=== PATIENT | male | born 1945 | race Caucasian/White ===

== ENCOUNTER 2018-08-23 13:33 | Outpatient (CLI) | payer OTHER, MEDICARE | END 2018-08-23 19:22 | disposition home or self-care (01) | LOC: SRD 13:33 | PROVIDERS: ATTEND Internal Medicine | DX: M16.12 Unilateral primary osteoarthritis, left hip (principal); I70.90 Unspecified atherosclerosis | CPT/HCPCS: 73502 ==

== ENCOUNTER 2018-10-07 22:56 | Inpatient (IN) | payer OTHER, MEDICARE ==
[~2018-10-07] VITALS: Ht 175.3 cm; Wt 111.6 kg
[2018-10-07 23:10] VITALS: BP_SYST 69
[2018-10-07] MEDS ORDERED: NACL 0.9% 1,000 ML IV ONE (23:30)
[2018-10-07] MEDS ORDERED: ONDANSETRON HCL 4 MG/2 ML VIAL IVP ONE (23:45)
[2018-10-07 23:56] LABS: BASOPHILS % (AUTO) 0.2 % (0.0-2.0); EOSINOPHILS % (AUTO) 0.2 % (0.0-4.0); HEMATOCRIT 43.8 % (36-54); HEMOGLOBIN 14.9 g/dL (14.0-18.0); LYMPHOCYTES # (AUTO) 0.4 K/uL (1.0-5.5); LYMPHOCYTES % (AUTO) 3.5 % (20.5-51.5); MEAN CORPUSCULAR HEMOGLOBIN 31 pg (27-31); MEAN CORPUSCULAR HGB CONC 34 % (32-36); MEAN CORPUSCULAR VOLUME 91 fL (79.0-98.0); MONOCYTES # (AUTO) 0.5 K/uL (0.0-1.0); MONOCYTES % (AUTO) 4.2 % (1.7-9.3); NEUTROPHILS # (AUTO) 10.6 K/uL (1.8-7.7); NEUTROPHILS % (AUTO) 91.9 % (40.0-70.0); PLATELET COUNT (AUTO) 248 K/uL (130-430); RED BLOOD CELL COUNT(AUTO) 4.82 MIL/uL (4.2-6.2); RED CELL DISTRIBUTION WIDTH 13.5 % (9.0-15.0); WHITE BLOOD COUNT (AUTO) 11.5 K/uL (4.8-10.8)
[2018-10-08 00:05] LABS: PROTHROMBIN TIME 9.8 SECS (9.5-12.5)
[2018-10-08 00:15] LABS: ANION GAP 14 (5-15); CALCIUM 8.3 mg/dL (8.4-11.0); CHLORIDE 98 mmol/L (98-107); CREATININE 2.55 mg/dL (0.55-1.30); GLUCOSE 247 mg/dL (70-99); POTASSIUM 5.3 mmol/L (3.5-5.1); SODIUM SERUM 133 mmol/L (136-145); UREA NITROGEN, BLOOD 48 mg/dL (8-21)
[2018-10-08] MEDS ORDERED: NACL 0.9% 2,000 ML IV ONE (00:15)
[2018-10-08] MEDS ORDERED: PIPERACILLIN/TAZO 3.375 GM in NS 50 ML IV ONE (00:15)
[2018-10-08 00:20] LABS: ALANINE AMINOTRANSFERASE 41 U/L (12-78); ALBUMIN 3.3 g/dL (3.4-4.8); ASPARTATE AMINOTRANSFERASE 27 U/L (10-37); TOTAL BILIRUBIN 1.5 mg/dL (0.0-1.0)
[2018-10-08] MEDS ORDERED: PIPERACILLIN/TAZOBACTAM 3.375 GM/VIAL (ZOSYN) IV ONE ×2 (00:22→04:32)
[2018-10-08] MEDS ORDERED: CALCIUM CHLORIDE 1 GM in NS 100 ML IV ONE (00:30)
[2018-10-08] MEDS ORDERED: NS 500 ML IV ONE (00:30)
[2018-10-08] MEDS ORDERED: INSULIN REGULAR, HUMAN 10 UNITS/0.1 ML INJ SUBCUT ONE (00:30)
[2018-10-08] MEDS ORDERED: DEXTROSE 50% JECT 50 ML DISP.SYRIN IVP ONE (00:30)
[2018-10-08 01:15] LABS: BILIRUBIN,URINE 1+ (NEGATIVE); BLOOD, URINE NEGATIVE (NEGATIVE); CLARITY/URINE CLEAR (CLEAR); COLOR,URINE YELLOW (YELLOW); GLUCOSE,URINE TRACE (NEGATIVE); KETONES,URINE TRACE (NEGATIVE); LEUKOCYTE ESTERASE ,URINE NEGATIVE (NEGATIVE); NITRITE, URINE NEGATIVE (NEGATIVE); PROTEIN URINE NEGATIVE (NEGATIVE); UROBILINOGEN,URINE 0.2 (0.2-1.0)
[2018-10-08] MEDS ORDERED: metroNIDAZOLE 500 mg/NS 100 ML IV ONE (02:15)
[2018-10-08] MEDS ORDERED: ACETAMINOPHEN 325 MG TABLET PO PRN ×2 (02:45→03:45)
[2018-10-08] MEDS ORDERED: NACL 0.9% 1,000 ML IV SCH (02:45)
[2018-10-08] MEDS ORDERED: INSULIN REGULAR, HUMAN 100 UNITS/ML, 10 ML VIAL (novoLIN R) SUBCUT PRN (02:45)
[2018-10-08] MEDS ORDERED: METF1000 PO (03:05)
[2018-10-08 03:26] VITALS: BP_SYST 113
[2018-10-08] MEDS: NACL 0.9% 1,000 ML IV SCH ×3 (03:58→14:31)
[2018-10-08] MEDS ORDERED: metroNIDAZOLE 500 mg/NS 100 ML IV SCH ×2 (04:00→10:00)
[2018-10-08] MEDS ORDERED: PIPERACILLIN/TAZOBACTAM 2.25 GM VIAL IV ONE (05:33)
[2018-10-08] MEDS: PIPERACILLIN/TAZO 2.25G/DEX-IS 50 ML IV SCH ×4 (05:59→23:06)
[2018-10-08] MEDS ORDERED: PIPERACILLIN/TAZO 3.375 GM in NS 50 ML IV SCH (06:00)
[2018-10-08 08:47] VITALS: BP_SYST 107
[2018-10-08] MEDS: metroNIDAZOLE 500 mg/NS 100 ML IV SCH ×2 (09:37→17:58)
[2018-10-08 11:23] VITALS: BP_SYST 113
[2018-10-08] MEDS: INSULIN REGULAR, HUMAN 100 UNITS/ML, 10 ML VIAL (novoLIN R) SUBCUT PRN ×3 (11:33→21:23)
[2018-10-08] MEDS ORDERED: LIP10 PO (14:53)
[2018-10-08] MEDS ORDERED: GLIP10TA11 PO (14:53)
[2018-10-08] MEDS ORDERED: LISI1TAB13 PO (14:55)
[2018-10-08] MEDS ORDERED: CETI1TAB2 PO (14:55)
[2018-10-08] MEDS ORDERED: IBUP-1619 PO (14:56)
[2018-10-08 15:11] VITALS: BP_SYST 117
[2018-10-08 15:33] LABS: HEMOGLOBIN 13.1 g/dL (14.0-18.0); RED BLOOD CELL COUNT(AUTO) 4.23 MIL/uL (4.2-6.2); WHITE BLOOD COUNT (AUTO) 8.8 K/uL (4.8-10.8)
[2018-10-08 15:34] LABS: ANION GAP 3 (5-15); CALCIUM 7.4 mg/dL (8.4-11.0); CHLORIDE 106 mmol/L (98-107); CREATININE 1.58 mg/dL (0.55-1.30); GLUCOSE 253 mg/dL (70-99); HEMATOCRIT 38.9 % (36-54); MEAN CORPUSCULAR HEMOGLOBIN 31 pg (27-31); MEAN CORPUSCULAR HGB CONC 34 % (32-36); MEAN CORPUSCULAR VOLUME 92 fL (79.0-98.0); POTASSIUM 4.9 mmol/L (3.5-5.1); SODIUM SERUM 132 mmol/L (136-145); UREA NITROGEN, BLOOD 39 mg/dL (8-21)
[2018-10-08 15:36] LABS: BASOPHILS % (AUTO) 0.6 % (0.0-2.0); LYMPHOCYTES # (AUTO) 1.1 K/uL (1.0-5.5); LYMPHOCYTES % (AUTO) 12.3 % (20.5-51.5); NEUTROPHILS # (AUTO) 6.9 K/uL (1.8-7.7); NEUTROPHILS % (AUTO) 78.1 % (40.0-70.0); PLATELET COUNT (AUTO) 241 K/uL (130-430); RED CELL DISTRIBUTION WIDTH 13.3 % (9.0-15.0)
[2018-10-08 15:37] LABS: BASOPHILS # (AUTO) 0.1 K/uL (0.0-0.2); EOSINOPHILS # (AUTO) 0.2 K/uL (0.0-0.4); MONOCYTES # (AUTO) 0.6 K/uL (0.0-1.0)
[2018-10-08 15:39] LABS: ALANINE AMINOTRANSFERASE 41 U/L (12-78); ALBUMIN 2.6 g/dL (3.4-4.8); ASPARTATE AMINOTRANSFERASE 68 U/L (10-37); TOTAL BILIRUBIN 1.3 mg/dL (0.0-1.0)
[2018-10-08] MEDS ORDERED: GABA-531 PO (16:37)
[2018-10-08] MEDS ORDERED: GABAPENTIN 300 MG CAPSULE PO ONE (17:15)
[2018-10-08] MEDS ORDERED: DEXTROSE 50%-WATER 50 ML DISP.SYRIN IVP PRN (17:15)
[2018-10-08] MEDS ORDERED: D5W 1,000 ML IV PRN (17:15)
[2018-10-08] MEDS ORDERED: GLUCOSE 15 GM GEL (in 37.5 GM TUBE) PO PRN (17:15)
[2018-10-08] MEDS ORDERED: ATORVASTATIN 10 MG TABLET PO SCH (21:00)
[2018-10-08 21:12] VITALS: BP_SYST 100; BP_SYST 83
[2018-10-08] MEDS: P-EPHED SUL/LORATADINE 1 TAB.SR TAB.SR.12H PO SCH (21:15)
[2018-10-08] MEDS: GABAPENTIN 300 MG CAPSULE PO SCH (21:16)
[2018-10-09] MEDS: metroNIDAZOLE 500 mg/NS 100 ML IV SCH ×2 (01:15→10:03)
[2018-10-09] MEDS: NACL 0.9% 1,000 ML IV SCH ×2 (01:16→12:11)
[2018-10-09 01:50] VITALS: BP_SYST 105
[2018-10-09] MEDS: PIPERACILLIN/TAZO 2.25G/DEX-IS 50 ML IV SCH (05:58)
[2018-10-09] MEDS: INSULIN REGULAR, HUMAN 100 UNITS/ML, 10 ML VIAL (novoLIN R) SUBCUT PRN ×2 (06:02→12:00)
[2018-10-09 06:59] LABS: ALANINE AMINOTRANSFERASE 43 U/L (12-78); ALBUMIN 2.5 g/dL (3.4-4.8); ANION GAP 3 (5-15); ASPARTATE AMINOTRANSFERASE 49 U/L (10-37); CALCIUM 7.5 mg/dL (8.4-11.0); CHLORIDE 106 mmol/L (98-107); CREATININE 1.24 mg/dL (0.55-1.30); GLUCOSE 197 mg/dL (70-99); SODIUM SERUM 134 mmol/L (136-145); UREA NITROGEN, BLOOD 30 mg/dL (8-21)
[2018-10-09 07:50] VITALS: BP_SYST 117
[2018-10-09 07:52] LABS: HEMATOCRIT 37.7 % (36-54); HEMOGLOBIN 15.2 g/dL (14.0-18.0); MEAN CORPUSCULAR HEMOGLOBIN 31 pg (27-31); MEAN CORPUSCULAR HGB CONC 33 % (32-36); MEAN CORPUSCULAR VOLUME 92 fL (79.0-98.0); PLATELET COUNT (AUTO) 202 K/uL (130-430); RED CELL DISTRIBUTION WIDTH 13.7 % (9.0-15.0); WHITE BLOOD COUNT (AUTO) 7.6 K/uL (4.8-10.8)
[2018-10-09 07:53] LABS: BASOPHILS % (AUTO) 0.2 % (0.0-2.0); EOSINOPHILS # (AUTO) 0.3 K/uL (0.0-0.4); EOSINOPHILS % (AUTO) 3.3 % (0.0-4.0); LYMPHOCYTES # (AUTO) 1.5 K/uL (1.0-5.5); LYMPHOCYTES % (AUTO) 19.7 % (20.5-51.5); MONOCYTES # (AUTO) 0.8 K/uL (0.0-1.0); MONOCYTES % (AUTO) 10.1 % (1.7-9.3); NEUTROPHILS # (AUTO) 5.1 K/uL (1.8-7.7); NEUTROPHILS % (AUTO) 66.7 % (40.0-70.0)
[2018-10-09] MEDS ORDERED: LISINOPRIL 20 MG TABLET PO SCH (09:00)
[2018-10-09] MEDS ORDERED: NON-FORMULARY MEDICATION (Cetirizine Hcl/Pseudoephedrine (Zyrtec-D Tablet) 1 TAB) PO SCH (09:00)
[2018-10-09] MEDS ORDERED: HYDROCHLOROTHIAZIDE 25 MG TABLET (HCTZ) PO SCH (09:00)
[2018-10-09] MEDS: GABAPENTIN 300 MG CAPSULE PO SCH (10:03)
[2018-10-09] MEDS: P-EPHED SUL/LORATADINE 1 TAB.SR TAB.SR.12H PO SCH (10:08)
[2018-10-09 11:29] VITALS: BP_SYST 148
[2018-10-09] MEDS ORDERED: PIPERACILLIN/TAZOBACTAM 3.375 GM/ D5W 50 ML IV SCH ×2 (12:00)
[2018-10-09 12:56] VITALS: BP_SYST 117
[2018-10-09] MEDS ORDERED: cefTRIAXone 1 GM in D5W 50 ML IV SCH (13:45)
== END 2018-10-09 14:40 | disposition home or self-care (01) | DRG 871 ==
LOC: SED 22:56 → STU 10-08 03:09
PROVIDERS: ADMIT Family Medicine; ATTEND Family Medicine
DX: A41.9 Sepsis, unspecified organism (principal); N17.0 Acute kidney failure with tubular necrosis; E87.1 Hypo-osmolality and hyponatremia; A09 Infectious gastroenteritis and colitis, unspecified; E78.5 Hyperlipidemia, unspecified; E86.0 Dehydration; E87.5 Hyperkalemia; I10 Essential (primary) hypertension; R74.0 Nonspecific elevation of levels of transaminase and lactic acid dehydrogenase [LDH]; E66.9 Obesity, unspecified; E11.43 Type 2 diabetes mellitus with diabetic autonomic (poly)neuropathy; Z68.36 Body mass index [BMI] 36.0-36.9, adult
CPT/HCPCS: 36415; 80053; 81003; 82962; 83605; 84484; 85025; 85610-TC; 85730-TC; 87040-TC; 87086; 87230-TC; 93005; G0378; J0696; J1815; J2405; J2543; J3490; J7030; J7060

== ENCOUNTER 2019-09-12 09:46 | Outpatient (CLI) | payer OTHER, MEDICARE ==
[~2019-09-12 09:46] MED LIST: CETI1TAB2 PO; GABA-531 PO; GLIP10TA11 PO; IBUP-1619 PO; LIP10 PO; LISI1TAB29 PO
== END 2019-09-12 21:12 | disposition home or self-care (01) ==
LOC: SRD 09:46
PROVIDERS: ATTEND Internal Medicine
DX: M47.816 Spondylosis without myelopathy or radiculopathy, lumbar region (principal)
CPT/HCPCS: 72110

== ENCOUNTER 2019-10-19 23:47 | Emergency (ER) | payer OTHER, MEDICARE ==
[~2019-10-19] VITALS: Ht 175.3 cm; Wt 108.9 kg
[2019-10-20] VITALS: BP_SYST 159
--- NOTE | 2019-10-20 | NUR ---
Patient to ER bed 06 to gown for evaluation. Side rails up. Report given to JESSICA Tejada.
--- NOTE | 2019-10-20 00:10 | NUR ---
Pt brought in by self. Pt is awake, alert, oriented x4. Pt ambulates with limp to L foot. Pt states chief complaint of L foot pain and blisters secondary to boiling water. Pt states that he was making tea in his home, was carrying a kettle of boiling water when the handle broke, spilling boiling water on the floor and his foot. Pt describes lifting his Right foor out of the puddle of boiling water, while the left foot remained in the puddle. pt states it was approx 15 seconds before he was able to remove sock that was saturated with boiling water. Pt denies KO, mechanical fall. Pt denies chest pain, nausea, vomiting, diarrhea, shortness of breath, syncope. Pt denies any other medical complaint of any kind at this time. Pt states he is a diabetic and is worried about injuries to his feet Pt resting in ED bed comfortably. No acute distress. VSS
--- NOTE | 2019-10-20 01:10 | NUR ---
ER at bedside examining patient.
[2019-10-20] MEDS ORDERED: SILVER SULFADIAZINE 1%, 25 GM TOPICAL CREAM (SSD) TP ONE (01:15)
[2019-10-20] MEDS ORDERED: MORPHINE 4 MG/ML INJ. SYRINGE IM ONE (01:15)
[2019-10-20] MEDS ORDERED: DIPH-TET-PERTUS Vaccine 0.5 ML VIAL (ADACEL) I.M. ONE (01:15)
[2019-10-20] MEDS ORDERED: TRIAMCINOLONE ACETONIDE 40 MG/ML IM ONE (02:00)
--- NOTE | 2019-10-20 02:26 | NUR ---
Pt resting in ED bed comfortably. No distress at this time. Pt states relief from pain.
--- NOTE | 2019-10-20 03:00 | NUR ---
Pt foot dressed/wrapped, pt instructed on method
[2019-10-20 03:25] VITALS: BP_SYST 144
--- NOTE | 2019-10-20 03:25 | NUR ---
Patient given written and verbal discharge instructions and verbalizes understanding. ER MD discussed with patient the results and treatment provided. Patient in stable condition. ID arm band removed. No IV Rx of norco, keflex, silvadene, given. Patient educated on pain management and to follow up with PMD. Pain Scale 0/10. Opportunity for questions provided and answered. Medication side effect fact sheet provided.
== END 2019-10-20 03:25 | disposition home or self-care (01) ==
LOC: SED 23:47
DX: T25.122A Burn of first degree of left foot, initial encounter (principal); T31.0 Burns involving less than 10% of body surface; E11.9 Type 2 diabetes mellitus without complications; I10 Essential (primary) hypertension; Z79.899 Other long term (current) drug therapy; W35.XXXA Explosion and rupture of boiler, initial encounter; Y93.89 Activity, other specified; Y92.89 Other specified places as the place of occurrence of the external cause; Y99.8 Other external cause status
CPT/HCPCS: 16000; 82962; 90471; 90715; 96372; 99284; J2270

== ENCOUNTER 2020-05-07 09:05 | Outpatient (CLI) | payer OTHER, MEDICARE ==
[~2020-05-07 09:05] MED LIST changes: -CETI1TAB2 PO; -GABA-531 PO; -IBUP-1619 PO; -LIP10 PO; -LISI1TAB29 PO
== END 2020-05-07 21:09 | disposition home or self-care (01) ==
LOC: SCT 09:05
PROVIDERS: ATTEND Internal Medicine
DX: M47.817 Spondylosis without myelopathy or radiculopathy, lumbosacral region (principal); M47.814 Spondylosis without myelopathy or radiculopathy, thoracic region; M25.78 Osteophyte, vertebrae; M48.04 Spinal stenosis, thoracic region
CPT/HCPCS: 72128; 72131

== ENCOUNTER 2020-07-19 15:15 | Outpatient (CLI) | payer MEDICARE | END 2020-07-19 20:00 | disposition home or self-care (01) | LOC: SRD 15:15 | PROVIDERS: ATTEND Internal Medicine | DX: R07.89 Other chest pain (principal); M47.814 Spondylosis without myelopathy or radiculopathy, thoracic region | CPT/HCPCS: 71046-TC ==

== ENCOUNTER 2020-11-05 14:51 | Emergency (ER) | payer OTHER, MEDICARE ==
[~2020-11-05] VITALS: Ht 172.7 cm; Wt 111.1 kg
[2020-11-05 15:17] VITALS: BP_SYST 161
[2020-11-05] MEDS ORDERED: AMOX-423 PO ×2 (16:08→16:20)
[2020-11-05 16:30] VITALS: BP_SYST 161
== END 2020-11-05 16:30 | disposition home or self-care (01) ==
LOC: SED 14:51
DX: K04.7 Periapical abscess without sinus (principal); I10 Essential (primary) hypertension; E11.9 Type 2 diabetes mellitus without complications; I51.9 Heart disease, unspecified; Z79.899 Other long term (current) drug therapy
CPT/HCPCS: 99283

== ENCOUNTER 2021-03-02 22:04 | Emergency (ER) | payer OTHER, MEDICARE ==
[~2021-03-02] VITALS: Ht 172.7 cm; Wt 108.0 kg
[~2021-03-02 22:04] MED LIST changes: +AMOX-423 PO
[2021-03-02 22:10] VITALS: BP_SYST 139
[2021-03-03] MEDS ORDERED: DIPH-TET-PERTUS Vaccine 0.5 ML VIAL (ADACEL) I.M. ONE (00:15)
[2021-03-03] MEDS ORDERED: BACTROBAN TP (00:22)
[2021-03-03 00:26] VITALS: BP_SYST 145
== END 2021-03-03 00:26 | disposition home or self-care (01) ==
LOC: SED 22:04
DX: S51.812A Laceration without foreign body of left forearm, initial encounter (principal); W45.8XXA Other foreign body or object entering through skin, initial encounter; Y93.89 Activity, other specified; Y92.89 Other specified places as the place of occurrence of the external cause; Y99.8 Other external cause status
CPT/HCPCS: 90715; 99283

== ENCOUNTER 2021-08-16 14:19 | Emergency (ER) | payer OTHER, MEDICARE, SELFPAY ==
[~2021-08-16] VITALS: Ht 172.7 cm; Wt 90.3 kg
[~2021-08-16 14:19] MED LIST changes: +BACTROBAN TP
[2021-08-16 14:30] VITALS: BP_SYST 124
[2021-08-16 15:09] VITALS: BP_SYST 124
== END 2021-08-16 15:09 | disposition home or self-care (01) ==
LOC: SED 14:19
DX: E11.649 Type 2 diabetes mellitus with hypoglycemia without coma (principal); F41.9 Anxiety disorder, unspecified; I10 Essential (primary) hypertension; Z79.899 Other long term (current) drug therapy
CPT/HCPCS: 82962; 93005; 99283

== ENCOUNTER 2022-11-13 13:54 | Emergency (ER) | payer OTHER, MEDICARE ==
[~2022-11-13] VITALS: Ht 172.7 cm; Wt 108.9 kg
[2022-11-13 13:55] VITALS: BP_SYST 174
--- NOTE | 2022-11-13 13:55 | NUR ---
BROUGHT IN BY [facility] AND TRIAGED. AWAITING ER BED AVAILABILITY
--- NOTE | 2022-11-13 16:00 | NUR ---
ER at bedside examining patient.
--- NOTE | 2022-11-13 16:20 | NUR ---
PT NEIGHBOR OMERO CALLED FOR UPDATE ON PT CONDITION. CONFIRMED WITH PT VERBALLY THAT IT WAS OK TO GIVE INFORMATION TO CALLER. UPDATED OMERO ON STATUS OF TESTING. OMERO STATED HE WILL CALL BACK FOR UPDATE AND TO TELL PT THAT HE CALLED.
[2022-11-13 16:35] LABS: BASOPHILS % (AUTO) 0.3 % (0.0-2.0); EOSINOPHILS # (AUTO) 0.2 K/uL (0.0-0.4); EOSINOPHILS % (AUTO) 1.1 % (0.0-4.0); HEMATOCRIT 35.1 % (36-54); HEMOGLOBIN 11.5 g/dL (14.0-18.0); LYMPHOCYTES # (AUTO) 1.3 K/uL (1.0-5.5); MEAN CORPUSCULAR HEMOGLOBIN 30 pg (27-31); MEAN CORPUSCULAR HGB CONC 33 % (32-36); MEAN CORPUSCULAR VOLUME 91 fL (79.0-98.0); MONOCYTES # (AUTO) 0.8 K/uL (0.0-1.0); MONOCYTES % (AUTO) 5.4 % (1.7-9.3); NEUTROPHILS # (AUTO) 12.1 K/uL (1.8-7.7); NEUTROPHILS % (AUTO) 84.2 % (40.0-70.0); PLATELET COUNT (AUTO) 277 K/uL (130-430); RED BLOOD CELL COUNT(AUTO) 3.86 MIL/uL (4.2-6.2); RED CELL DISTRIBUTION WIDTH 13.1 % (9.0-15.0); WHITE BLOOD COUNT (AUTO) 14.4 K/uL (4.8-10.8)
[2022-11-13 16:39] LABS: ANION GAP 4 (5-15); CALCIUM 8.8 mg/dL (8.4-11.0); CHLORIDE 106 mmol/L (98-107); CREATININE 1.85 mg/dL (0.55-1.30); GLUCOSE 220 mg/dL (70-99); UREA NITROGEN, BLOOD 45 mg/dL (8-21)
[2022-11-13 16:44] LABS: ALANINE AMINOTRANSFERASE 24 U/L (12-78); ALBUMIN 3.1 g/dL (3.4-4.8); ASPARTATE AMINOTRANSFERASE 19 U/L (10-37); TOTAL BILIRUBIN 0.5 mg/dL (0.0-1.0)
--- NOTE | 2022-11-13 16:46 | NUR ---
Creatinine levels slightly elevated per MD Flor. Changing radiological orders to negate contrast.
--- NOTE | 2022-11-13 16:47 | NUR ---
# 20 gauge angiocath placed to left antecubital. Use of asceptic technique. Opsite placed over site. Blood return noted. Blood for lab drawn from site. Flushed with 10 cc of normal saline. No evidence of infiltration noted. Patient tolerated well.
[2022-11-13] MEDS ORDERED: NACL 0.9% 1,000 ML IV ONE (17:00)
--- NOTE | 2022-11-13 17:32 | NUR ---
Pt complains of tiredness and hunger, states did not have any intake today. Blood sugar evaluated 211 notified MD. Md Flor authorized a snack for pt.
[2022-11-13] MEDS ORDERED: ACET1TAB93 PO (18:36)
[2022-11-13] MEDS ORDERED: ACETAMINOPHEN/CODEINE 300 MG-30 MG TABLET PO ONE (18:45)
[2022-11-13 19:13] VITALS: BP_SYST 174
--- NOTE | 2022-11-13 19:13 | NUR ---
Patient given written and verbal discharge instructions and verbalizes understanding. ER MD discussed with patient the results and treatment provided. Patient in stable condition. ID arm band removed. IV catheter removed intact and dressing applied, no active bleeding. Rx of Tylenol #3 given. Patient educated on pain management and to follow up with PMD. Opportunity for questions provided and answered. Medication side effect fact sheet provided.
== END 2022-11-13 19:13 | disposition home or self-care (01) ==
LOC: SED 13:54
DX: S20.311A Abrasion of right front wall of thorax, initial encounter (principal); S60.410A Abrasion of right index finger, initial encounter; E11.9 Type 2 diabetes mellitus without complications; I10 Essential (primary) hypertension; Z79.899 Other long term (current) drug therapy; V89.2XXA Person injured in unspecified motor-vehicle accident, traffic, initial encounter; Y93.89 Activity, other specified; Y92.89 Other specified places as the place of occurrence of the external cause; Y99.8 Other external cause status
CPT/HCPCS: 99284; 70450; 96360; 96361; 80053; 82962; 85025; 36415; 71250; 72125; 74176; 76376; J7030; 93005

== ENCOUNTER 2023-07-02 21:26 | Emergency (ER) | payer OTHER, MEDICARE ==
[~2023-07-02] VITALS: Ht 172.7 cm; Wt 111.1 kg
[~2023-07-02 21:26] MED LIST changes: +ACET1TAB93 PO
[2023-07-02 21:34] VITALS: BP_SYST 186; PULSE 99; RESP 21; TEMP 98; O2SAT 97
[2023-07-02] MEDS ORDERED: AMOXICILLIN/POTASSIUM CLAV 875 MG TABLET PO ONE (22:30)
[2023-07-02] MEDS ORDERED: AUG875 PO (22:43)
[2023-07-02 23:04] VITALS: BP_SYST 178; PULSE 80; RESP 18; TEMP 98.6; O2SAT 95
== END 2023-07-02 23:04 | disposition home or self-care (01) ==
LOC: SED 21:26
DX: K08.89 Other specified disorders of teeth and supporting structures (principal); E11.9 Type 2 diabetes mellitus without complications; I10 Essential (primary) hypertension; Z79.899 Other long term (current) drug therapy
CPT/HCPCS: 99283

== ENCOUNTER 2023-10-13 22:10 | Emergency (ER) | payer OTHER, MEDICARE ==
[~2023-10-13] VITALS: Ht 172.7 cm; Wt 111.1 kg
[~2023-10-13 22:10] MED LIST changes: +AUG875 PO
[2023-10-13 22:15] VITALS: BP_SYST 137; PULSE 99; RESP 18; TEMP 98.8; O2SAT 96
[2023-10-13 23:05] VITALS: BP_SYST 182; PULSE 94; RESP 18; TEMP 98.3; O2SAT 95
[2023-10-14] MEDS: ACETAMINOPHEN 500 MG TABLET PO ONE (01:03)
[2023-10-14] MEDS: KETOROLAC TROMETHAMINE 30 MG VIAL IM ONE (01:04)
[2023-10-14] MEDS ORDERED: LIDO1ADH71 TP (01:54)
[2023-10-14] MEDS ORDERED: ACET-2634 PO (01:54)
== END 2023-10-14 01:55 | disposition left against medical advice (07) ==
LOC: SED 22:10
DX: R07.81 Pleurodynia (principal); R10.12 Left upper quadrant pain; E11.9 Type 2 diabetes mellitus without complications; I10 Essential (primary) hypertension; Z79.899 Other long term (current) drug therapy
CPT/HCPCS: 99285; 74176; 71045; 71100; 96372; J1885

== ENCOUNTER 2024-02-16 08:48 | Outpatient (CLI) | payer OTHER, MEDICARE ==
[~2024-02-16 08:48] MED LIST changes: +ACET-2634 PO; -ACET1TAB93 PO; +LIDO1ADH71 TP
== END 2024-02-16 19:17 | disposition home or self-care (01) ==
LOC: SUS 08:48
PROVIDERS: ATTEND Internal Medicine
DX: N28.1 Cyst of kidney, acquired (principal); N18.9 Chronic kidney disease, unspecified
CPT/HCPCS: 76770